=== PATIENT | male | born 1950 | race Caucasian/White ===

== ENCOUNTER 2019-07-27 06:00 | Day surgery (SDC) | payer MEDICARE, OTHER ==
[2019-07-27] MEDS ORDERED: Dextrose 5%-Lactated Ringers 1,000 ML IV SCH (06:30)
[2019-07-27] MEDS ORDERED: fentaNYL 100 MCG/2 ML SDV ONE (07:04)
[2019-07-27] MEDS ORDERED: Midazolam 1 MG/ML 2 ML SDV ONE (07:04)
[2019-07-27] MEDS ORDERED: Propofol 200 MG/20 ML SDV ONE (07:04)
[2019-07-27] MEDS ORDERED: Meropenem 500 MG in Sodium Chloride 0.9% 50 ML IV ONE (07:15)
--- NOTE | 2019-07-31 08:08 | OR ---
DATE OF PROCEDURE: 07/27/2019 SURGEON: Guero Dang MD PREOPERATIVE DIAGNOSIS: Indications for screening colonoscopy. POSTOPERATIVE DIAGNOSES: 1. History of colon polyps with no recurrent polyps seen on today's exam. 2. Mildly excoriated hemorrhoids. OPERATIVE PROCEDURE: Screening colonoscopy. ANESTHESIA: IV sedation. INDICATIONS FOR PROCEDURE: This is a 68-year-old referred from the [facility] system with plan for a followup colonoscopy with biopsies and/or polypectomy as indicated. The patient does have personal history of colon polyps on 2 separate occasions in the past. Plan is to proceed with a colonoscopy with biopsies and/or polypectomy. Potential risks including bleeding and perforation were discussed, and the patient wishes to proceed. DETAILS OF PROCEDURE: The patient was taken to the operating room and placed in a left lateral decubitus position. IV sedation was administered, after which the initial digital rectal exam was performed and was unremarkable. Colonoscope was then passed into the rectum. Both passage through the rectum and retroflexion revealed some generally mildly excoriated hemorrhoids, but otherwise, these were unremarkable. Scope was eventually passed into the cecum. The prep was quite good with only a small amount of liquid stool being present to that level. No recurrent polyps were seen or other signs of neoplasia. Likewise, there were no areas of colitis, but no diverticular disease was identified. Scope was then withdrawn, and the findings reconfirmed, and the patient was taken to the recovery room in satisfactory condition. There were no evident complications. RECOMMENDATIONS: Given personal history of the colon polyps, there will be a repeat colonoscopy in 5 years. Guero Dang MD /[id number]
== END 2019-07-27 08:30 | disposition home or self-care (01) ==
LOC: JP.SDS 06:00
PROVIDERS: ATTEND Surgery
DX: Z12.11 Encounter for screening for malignant neoplasm of colon (principal); K64.8 Other hemorrhoids; I10 Essential (primary) hypertension; Z86.010 Personal history of colon polyps
CPT/HCPCS: G0121; J2185; J2250; J2704; J3010; J7042; J7050

== ENCOUNTER 2021-12-30 12:00 | Emergency (ER) | payer MEDICARE ==
[2021-12-30] MEDS ORDERED: Bacitracin Oint 1 GM U/D Packet TOP ONE (12:50)
[2021-12-30] MEDS ORDERED: Lidocaine 1% 5 ML VIAL INJECT ONE (12:50)
[2021-12-30] MEDS ORDERED: Diphtheria,Pertussis(Acell),Tetanus Vaccine 0.5 ML Syringe IM ONE (13:34)
== END 2021-12-30 13:50 | disposition home or self-care (01) ==
LOC: JP.ED 12:00
DX: S51.812A Laceration without foreign body of left forearm, initial encounter (principal); I10 Essential (primary) hypertension; M10.9 Gout, unspecified; Z23 Encounter for immunization; W22.09XA Striking against other stationary object, initial encounter
CPT/HCPCS: 12002; 90471; 90715; 99281; 99282-25

== ENCOUNTER 2022-08-05 14:23 | Emergency (ER) | payer MEDICARE ==
[2022-08-05] MEDS ORDERED: Bupivacaine 0.5% 10 ML SDV INJECT ONE (14:39)
[2022-08-05] MEDS ORDERED: ceFAZolin 1 GM in Sodium Chloride 0.9% 50 ML IV ONE (15:14)
== END 2022-08-05 16:30 | disposition home or self-care (01) ==
LOC: JP.ED 14:23
DX: S61.212A Laceration without foreign body of right middle finger without damage to nail, initial encounter (principal); S60.141A Contusion of right ring finger with damage to nail, initial encounter; Z79.899 Other long term (current) drug therapy; W23.1XXA Caught, crushed, jammed, or pinched between stationary objects, initial encounter
CPT/HCPCS: 64450; 96365; 99282; J0690; J3490